=== PATIENT | female | born 1940 | race African-American/Black ===

== ENCOUNTER → 2017-06-06 | Outpatient (CLI) | payer OTHER ==
[~2017-06-06] MED LIST: AMLODIPINE BESYL5 MG PO; B/P MED; CARAFATE 1 GM TA1 G1 PO; CATAPRES0.1 MG PO; CEFDINIR300 MG PO; COZAAR100 MG PO; DEXILANT60 MG PO; ERYTHROMYCIN250 M1 PO; ERYTHROMYCIN250 MG PO; FLAGYL500 M1 PO; HYDROCODONE-AP1 EAC6 PO; HYZAAR 100-12.1 EACH PO; NAPROSYN500 MG PO; NORCO 5-325 TA1 EACH PO; ULORIC40 MG; Z PACK; ZOCOR 20 MG TAB20 M1 PO; ZOFRAN ODT4 MG PO; ZYRTEC10 MG PO
== END ==
LOC: NUC 09:10
DX: M81.0 Age-related osteoporosis without current pathological fracture (principal); E28.39 Other primary ovarian failure

== ENCOUNTER → 2017-07-01 | Outpatient (CLI) | payer OTHER | LOC: RAD 01:12 | DX: Z12.31 Encounter for screening mammogram for malignant neoplasm of breast (principal) ==

== ENCOUNTER → 2018-07-31 | Outpatient (CLI) | payer OTHER | LOC: RAD 13:12 | DX: Z12.31 Encounter for screening mammogram for malignant neoplasm of breast (principal) ==

== ENCOUNTER 2018-09-02 11:55 | Emergency (ER) | payer OTHER ==
[~2018-09-02] VITALS: Ht 170.2 cm; Wt 67.6 kg
[~2018-09-02 11:55] MED LIST changes: -AMLODIPINE BESYL5 MG PO; +NORVASC5 MG PO
[2018-09-02 12:44] LABS: ABSOLUTE NEUTROPHILS 3.6 thou/uL (1.4-8.2); BASOPHILS 0.9 % (0.0-2.0); EOSINOPHILS 1.7 % (0.0-3.0); HEMATOCRIT 37.7 % (37.0-47.0); HEMOGLOBIN 12.3 gm/dL (12.0-15.0); MCH 27.4 pg (26.0-34.0); MCHC 32.6 g/dL (28.0-37.0); MCV 84.2 fL (80.0-100.0); MONOCYTES 8.1 % (1.0-8.0); PLATELET COUNT 204 thou/uL (150-400); POLYS 55.3 % (36.0-66.0); RBC 4.48 mil/uL (4.20-5.00); RDW 17.3 % (10.5-14.5); WBC 6.4 thou/uL (4.0-11.0)
[2018-09-02 12:47] LABS: CALCIUM 9.9 mg/dL (8.5-10.1); POTASSIUM 3.5 mmol/L (3.5-5.1)
[2018-09-02 12:53] LABS: ALBUMIN 3.9 g/dL (3.4-5.0); DIRECT BILIRUBIN 0.2 mg/dL (<0.1-0.3); TOTAL BILIRUBIN 0.7 mg/dL (<0.1-1.0); TOTAL PROTEIN 8.3 g/dL (6.4-8.2)
[2018-09-02] MEDS ORDERED: ZYLOPRIM300 MG PO (13:12)
[2018-09-02] MEDS ORDERED: PRAVACHOL20 MG PO (13:13)
[2018-09-02] MEDS ORDERED: ERYTHROMYCIN250 M1 PO (13:13)
[2018-09-02] MEDS ORDERED: SINGULAIR 10 MG10 M1 PO (13:13)
[2018-09-02] MEDS ORDERED: OMEPRAZOLE40 MG PO (13:14)
[2018-09-02 13:19] VITALS: BP 136/60
[2018-09-02 14:21] LABS: URINE BILIRUBIN NEGATIVE (Negative); URINE BLOOD NEGATIVE (Negative); URINE CLARITY CLEAR; URINE COLOR YELLOW; URINE GLUCOSE-RANDOM* NEGATIVE (Negative); URINE KETONES NEGATIVE (Negative); URINE LEUKOCYTES-REFLEX NEGATIVE (Negative); URINE NITRITE-REFLEX NEGATIVE (Negative); URINE PROTEIN (DIPSTICK) NEGATIVE (Negative); URINE SPECIFIC GRAVITY <= 1.005 (1.005-1.035); URINE UROBILINOGEN 0.2 E.U./dl (0.2-1.0)
[2018-09-02] MEDS ORDERED: CARAFATE 1 GM TA1 G1 PO (14:47)
[2018-09-04] MEDS ORDERED: LOSARTAN-HCTZ1 EAC2 PO (14:25)
[2018-09-04] MEDS ORDERED: ADULT ONE DAI200 MCG PO (14:26)
== END 2018-09-02 15:48 | disposition home or self-care (01) ==
LOC: ER 11:55
PROVIDERS: Emergency Medicine
DX: K29.70 Gastritis, unspecified, without bleeding (principal); I10 Essential (primary) hypertension; E11.9 Type 2 diabetes mellitus without complications; E78.00 Pure hypercholesterolemia, unspecified; K21.9 Gastro-esophageal reflux disease without esophagitis; Z90.710 Acquired absence of both cervix and uterus; Z87.19 Personal history of other diseases of the digestive system; Z79.899 Other long term (current) drug therapy; Z88.5 Allergy status to narcotic agent

== ENCOUNTER → 2018-09-09 | Outpatient (CLI) | payer OTHER ==
[~2018-09-09] VITALS: Ht 170.2 cm; Wt 67.6 kg
[~2018-09-09] MED LIST changes: +ADULT ONE DAI200 MCG PO; +LOSARTAN-HCTZ1 EAC2 PO; +OMEPRAZOLE40 MG PO; +PRAVACHOL20 MG PO; +SINGULAIR 10 MG10 M1 PO; +ZYLOPRIM300 MG PO
--- NOTE | ~2018-09-09 | P ---
[facility] [place] [address] PROCEDURE REPORT Name: MOUSTAPHA BURRIS Room #: REG [facility]#: [id number] Admission: 09/09/18 ������������������ Attend Phys: Brian Vo Discharge: ������������������ Date of : 38 Report #: [id number] THIS REPORT FOR: //name// CC: Brian Brown DATE OF SERVICE: 09/09/2018 PROCEDURE PERFORMED: Colonoscopy. HISTORY OF PRESENT ILLNESS: The patient is a 77-year-old female, with history of colon polyps, here for routine 5-year followup. No family history of colon cancer. Denies any symptoms at this time. DESCRIPTION OF PROCEDURE: The risks and benefits of the procedure were explained to the patient, those risks including, but not limited to, bleeding, perforation, the risk of sedation. She understood these risks and gave informed consent. Sedation was given using propofol per anesthesia. Next, a digital rectal exam was initially performed, which was normal. Next, using a standard Olympus colonoscope, the scope was placed in the patient's anus and advanced under direct vision to the cecum. The overall prep was good. The cecum and ileocecal valve were normal in appearance. Ascending, transverse and descending colon were normal. A few scattered diverticula were noted in the sigmoid colon, no evidence of inflammation, otherwise normal. The rectal mucosa was normal. On retroflexion, small nonbleeding internal hemorrhoids were noted. The scope was then withdrawn and the procedure terminated. The patient tolerated the procedure well. IMPRESSION: 1. Sigmoid diverticulosis, mild. 2. Small internal hemorrhoids. 3. Otherwise, normal colonoscopy. RECOMMENDATIONS: 1. Recommend high fiber diet. 2. No need for repeat colonoscopy due to the patient's age. Thank you for allowing me to participate in her care. ��������������������������������������������� ���������������������������������������� By: ��������������������������������������������� 0953 20 Brian Su MD /nt
== END | disposition home or self-care (01) ==
LOC: GI 07:16
DX: Z12.11 Encounter for screening for malignant neoplasm of colon (principal); Z86.010 Personal history of colon polyps; K57.30 Diverticulosis of large intestine without perforation or abscess without bleeding; K64.8 Other hemorrhoids; I10 Essential (primary) hypertension; E78.00 Pure hypercholesterolemia, unspecified; K21.9 Gastro-esophageal reflux disease without esophagitis; E11.9 Type 2 diabetes mellitus without complications; Z90.49 Acquired absence of other specified parts of digestive tract; Z90.711 Acquired absence of uterus with remaining cervical stump; Z88.6 Allergy status to analgesic agent; Z79.899 Other long term (current) drug therapy; Z98.890 Other specified postprocedural states
CPT/HCPCS: 62110; 62900

== ENCOUNTER → 2019-09-07 | Outpatient (CLI) | payer OTHER | LOC: BC 09:46 | DX: Z12.31 Encounter for screening mammogram for malignant neoplasm of breast (principal) ==

== ENCOUNTER → 2020-03-07 | Outpatient (CLI) | payer OTHER | LOC: BC 10:10 | PROVIDERS: ATTEND Family Medicine | DX: N64.4 Mastodynia (principal); R92.8 Other abnormal and inconclusive findings on diagnostic imaging of breast ==

== ENCOUNTER → 2020-09-15 | Outpatient (CLI) | payer OTHER | LOC: BC 10:13 | PROVIDERS: ATTEND Family Medicine | DX: Z12.31 Encounter for screening mammogram for malignant neoplasm of breast (principal) ==

== ENCOUNTER → 2020-09-20 | Outpatient (CLI) | payer OTHER | LOC: BC 13:24 | PROVIDERS: ATTEND Family Medicine | DX: R92.0 Mammographic microcalcification found on diagnostic imaging of breast (principal) ==

== ENCOUNTER → 2020-09-28 | Outpatient (CLI) | payer OTHER ==
--- NOTE | 2020-10-02 15:07 | PATH ---
[facility] [place] [address] PATHOLOGY RPT PROCEDURE Name: MOUSTAPHA RAMIREZ Room #: REG [facility] M.R.#: [id number] Admission: 09/28/20 Date of : 38 Discharge: Report #: [id number] Path Case #: [id number] LCA Accession Number: [id number] . 01 Material submitted: . breast - STEREO LEFT MEDIAL BREAST CALCIFICATIONS. Modifiers: left, medial . 01 Clinical history: . US/BREAST BIOPSY STEREOTACTIC . 02 Diagnosis: Breast, left breast medial, stereotactic needle core biopsy: - DUCTAL CARCINOMA IN SITU, CRIBRIFORM TYPE, INTERMEDIATE NUCLEAR GRADE ASSOCIATED WITH COARSE CALCIFICATIONS. - Negative for invasive carcinoma. 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 02 Comment: Properly controlled immunohistochemical stains are performed on block A1 and include a p63, myosin and calponin. The immunohistochemical stains show intact myoepithelial cell layer surrounding the malignant cells, consistent with ductal carcinoma in situ. . ER and CA are ordered on block A1 and the results of these will be reported in an addendum to follow. . Dr. Alberto Leon has seen it sales representative slides of this case and concur with the diagnosis rendered. . Findings of this case are telephoned to miss Cruz in our breast center in the morning of 10/02/2020. . (IUV:rod puller and coiler; 10/02/2020) . 02 Electronically signed: . Libra Varela MD, Pathologist NPI- [id number] . 01 Gross description: . The specimen is received in formalin, labeled "Moustapha Ramirez left" additionally labeled left breast calcifications medial on the requisition received as multiple soft lisa-yellow tissue cores measuring up to 2.5 cm x 0.2 cm. The specimen is entirely submitted A1-A3 (tissue in the white cassette transferred to cassette A1). The specimen is removed from the patient at 1045 hours and placed in formalin at 1050 hours on September. [place] [address] PATHOLOGY RPT PROCEDURE Name: MOUSTAPHA RAMIREZ Room #: REG [facility]#: [id number] Admission: 09/28/20 Date of : 39 Discharge: Report #: [id number] Path Case #: [id number] from formalin at 11:30pm. The specimen is in formalin for greater than 6 hours and less than 72 hours. ([facility]; 09/28/2020) MONROE/MONROE 10/02/2020 1101 Local . 02 Pathologist provided ICD-10: D05.12 . 02 CPT . 585524, J00079, K31008 Specimen Comment: A courtesy copy of this report has been sent to [phone] Specimen Comment: [phone] Specimen Comment: Report sent to / DR VIRGEN Performed at: [address], [place] [id number] MD Alberto Leon MD Phone: [phone] Performed at: [address] [id number] MD Libra Varela MD Phone: [phone]
== END | disposition home or self-care (01) ==
LOC: ULTRA 09:32
PROVIDERS: ATTEND Family Medicine
DX: D05.12 Intraductal carcinoma in situ of left breast (principal); R92.1 Mammographic calcification found on diagnostic imaging of breast; I10 Essential (primary) hypertension; E78.00 Pure hypercholesterolemia, unspecified; K21.9 Gastro-esophageal reflux disease without esophagitis; Z98.890 Other specified postprocedural states; Z79.899 Other long term (current) drug therapy; Z90.49 Acquired absence of other specified parts of digestive tract; Z90.710 Acquired absence of both cervix and uterus; Z88.6 Allergy status to analgesic agent

== ENCOUNTER 2020-11-03 07:48 | Day surgery (SDC) | payer OTHER ==
[~2020-11-03] VITALS: Ht 167.6 cm; Wt 58.1 kg
--- NOTE | ~2020-11-03 | O ---
[facility] [place] [address] OPERATIVE REPORT Name: MOUSTAPHA BURRIS Room #: 150-4 [facility] MAdriel.#: [id number] Admission: 11/03/20 Attend Phys: Paulina Dugan DO Discharge: Date of : 39 Report #: [id number] THIS REPORT FOR: cc: Sharon Chaudhari MD, Lisa A. MD Fisher, Chelsea R. DO ~ DATE OF SERVICE: 11/03/2020 PREOPERATIVE DIAGNOSIS: Left breast ductal carcinoma in situ. POSTOPERATIVE DIAGNOSES: 1. Left breast ductal carcinoma in situ. 2. Left breast hematoma. SURGEON: Dr. Paulina Dugan. ANESTHESIA: General endotracheal and local anesthetic. PROCEDURE: Left breast lumpectomy with wire localization. SPECIMENS: 1. Left breast lumpectomy. 2. Additional medial margin. ESTIMATED BLOOD LOSS: 15 mL. COMPLICATIONS: None. INDICATIONS FOR PROCEDURE: The patient is an 79-year-old female who was seen in my office for evaluation of the left breast abnormality seen on mammogram. Core needle biopsy with evidence of DCIS and no invasive carcinoma. The patient had a large hematoma at the biopsy site seen in preoperative clinic. Therefore, after allowing time for hematoma resolution, the patient was scheduled for the operating room for a left breast lumpectomy with wire localization. The patient was explained the procedure, including risks, benefits and alternatives. All questions were answered to patient's satisfaction. Informed consent was obtained. DESCRIPTION OF PROCEDURE: The patient presented to the preoperative holding area. She underwent wire localization with radiology preoperatively. The patient was then seen by myself and the left breast was then marked. All questions were answered. The patient was then taken to the operating room and general anesthesia was induced. SCDs were placed on bilateral extremities and prophylactic antibiotics were administered. Next, the left breast and wire were then prepped and draped in the usual sterile fashion. After a timeout was performed, a 3 cm incision was made on an oblique angle in the left upper medial [address] [address] OPERATIVE REPORT Name: MOUSTAPHA BURRIS Room #: 150-4 [facility] M.R.#: [id number] Admission: 11/03/20 Attend Phys: Paulina Dugan DO Discharge: Date of : 39 Report #: [id number] breast and incorporated the needle stick site. Dissection was carried down through the needle and wire. There was noted to be a large left breast hematoma at the site of the patient's previous biopsy. Circumferential dissection was performed around this hematoma capsule and incorporated additional normal-appearing fatty breast tissue. During this dissection, the wire was pulled from the specimen and was placed on the back table. Continued dissection around the mass was performed ensuring hemostasis along the way. Once the specimen was removed in its entirety, it was approximately 2.5 x 2.5 cm in size and the specimen was then marked short stitch superior, long stitch lateral, and double stitch anterior. The specimen was then sent to radiology and a mammogram was performed. There were noted to be microcalcifications nearing the margin of one of the borders of the specimen; however, unable to clearly identify which border this was, presumed to be possibly the medial; therefore, the mass was reoriented on the specimen plate and was re-imaged. The second image did demonstrate this was in the medial likely superior aspect of the lumpectomy cavity. This medial aspect of the cavity was then grasped with an Allis clamp and using a scalpel, an additional margin was obtained and a stitch was placed on the new margin. This was sent for permanent specimen labeled left breast additional medial margin. At this time, the area was then copiously irrigated with sterile saline. Hemostasis was achieved using Bovie cautery. The wound was then closed in a layered fashion using 3-0 Vicryl in a deep breast plane to decrease the seroma formation as well as in the deep dermal layers, 4-0 Monocryl was run in a subcuticular fashion to close the skin and Dermabond was applied for sterile dressing. All sponge and instrument count was reported as correct at the end of the case. The patient was awakened from anesthesia in the operating room and taken to the PACU in stable condition for further recovery. By: 1108 1134 Paulina Dugan DO /nt
[~2020-11-03 07:48] MED LIST changes: +ANIMAL CHEWS1 EAC1 PO; +BENTYL 10 MG CA10 M1 PO
[2020-11-03 11:17] VITALS: BP 139/71
[2020-11-03] MEDS ORDERED: ONDANSETRON ODT4 MG PO (12:10)
[2020-11-03] MEDS ORDERED: TRAMADOL 50 MG50 MG PO (12:11)
[2020-11-03 12:26] VITALS: BP 139/71
--- NOTE | 2020-11-07 17:06 | PATH ---
[facility] [place] [address] PATHOLOGY RPT PROCEDURE Name: MOUSTAPHA BURRIS Room #: DEP [facility]..#: [id number] Admission: 11/03/20 Date of : 39 Discharge: 11/03/20 Report #: [id number] Path Case #: [id number] LCA Accession Number: [id number] . 01 Material submitted: . PART A: breast - LEFT BREAST LUMPECTOMY WIRE LOCALIZATION. Modifiers: left PART B: breast - ADDITIONAL MEDIAL MARGIN LEFT BREAST. Modifiers: left, medial . 01 Clinical history: . LUMPECTOMY SJ LEFT BREAST DCIS FOR A- LONG SUTURE/LATERAL MARGIN SHORT SUTURE/SUPERIOR MARGIN DOUBLE SUTURE/ANTERIOR MARGIN FOR B- STITCH NOBLE THE NEW MARGIN . 02 Diagnosis: A. Breast, left breast, lumpectomy: - DUCTAL CARCINOMA IN SITU, CRIBRIFORM AND SOLID TYPES, INTERMEDIATE NUCLEAR GRADE. - Negative for invasive carcinoma. - Biopsy site changes present associated with hemorrhage, and repair. - MARGINS OF RESECTION FOCALLY POSITIVE FOR DUCTAL CARCINOMA IN SITU (ASSOCIATED WITH CAUTERY); POSITIVE MARGINS INCLUDE ANTERIOR, TONY-INFERIOR AND LATERAL. - Superior, posterior and medial margins widely free of malignancy; closest superior margin is 0.7 cm away. . B. Breast, additional medial margin left breast, re-excision: - Benign breast tissue with proliferative fibrocystic changes. - Negative for atypia, carcinoma in-situ or malignancy. . 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 . . Surgical Pathology Cancer Case Summary . Protocol posting date: May 2019 . DCIS OF THE BREAST: . Specimen Identification . Procedure ___ Lumpectomy with wire localization . [facility] [address] [place] [address] PATHOLOGY RPT PROCEDURE Name: DAYTONMOUSTAPHADARNELL DUFFY Room #: DEP [facility]..#: [id number] Admission: 11/03/20 Date of : 39 Discharge: 11/03/20 Report #: [id number] Path Case #: [id number] Specimen Laterality ___ Left . Size (Extent) of DCIS Estimated size (extent) of DCIS (greatest dimension using gross and microscopic evaluation): at least 4 mm Number of blocks with DCIS: 7 Number of blocks examined: 13 . Histologic Type ___ Ductal carcinoma in situ . Architectural Patterns ___ Cribriform and Solid types . Nuclear Grade) ___ Grade II (Intermediate) . Necrosis ___ Not identified . Margins ___ Positive for DCIS ___Anterior Extent (specify): focal ___Antero- inferior Extent (specify): focal ___Lateral Extent (specify): focal . . . Regional Lymph Nodes . ___ No lymph nodes submitted or found . Pathologic Stage Classification (pTNM, AJCC 8th Edition) . Primary Tumor (pT) ___ pTis (DCIS): Ductal carcinoma in situ . 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 02 Comment: A. DCIS is identified in scattered foci at the anterior, tony-inferior and the lateral margins. These do not represent contigous foci. [facility] [address] [place] [address] PATHOLOGY RPT PROCEDURE Name: MOUSTAPHA BURRIS TATI Room #: DEP [facility]#: [id number] Admission: 11/03/20 Date of : 39 Discharge: 11/03/20 Report #: [id number] Path Case #: [id number] . Electrical Unit Rebuilder slides with the ductal carcinoma in situ identified at the margins associated with cautery (slides A3, A7, and A12) are co-reviewed by Dr. Becky Peter who concurs with my diagnosis. . Findings of this case are communicated to Dr. Paulina Dugan at 5:00 pm on 11/06/2020. . 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 02 Electronically signed: . Libra Varela MD, Pathologist NPI- [id number] . 01 Gross description: . A. Fixative: Formalin Specimen received: Left breast lumpectomy wire localization, double anterior, long lateral, short superior received Oriented: Short superior, long lateral, double anterior Weight: 10 g Dimensions: 3.1 cm medial to lateral, 2.8 cm superior to inferior, 2.2 cm anterior to posterior . The specimen is inked as follows: superior-red inferior-blue anterior-green posterior-black lateral-orange medial-yellow . Sectioned from: Medial to lateral Number of slices: 9 Previous biopsy site: 1.4 x 0.9 x 0.9 cm Previous biopsy site location: Slices 3 through 7 . Previous biopsy site to margins: 0.7 cm to superior 0.7 cm to inferior 0.2 cm to anterior 1.0 cm to posterior 1.3 cm to lateral 0.9 cm to medial . Biopsy clip: Not identified Uninvolved breast parenchyma: White, fibrous with a slight amount of bright yellow, lobulated tissue identified . [address] [address] PATHOLOGY RPT PROCEDURE Name: MOUSTAPHA BURRIS Room #: DEP [facility]#: [id number] Admission: 11/03/20 Date of : 39 Discharge: 11/03/20 Report #: [id number] Path Case #: [id number] The specimen is submitted as follows: . A1 slice 1 (most medial margin), serially sectioned A2 slice 2 A3 slice 3 A4-A5 slice 4, bisected into superior and inferior aspects A6-A7 slice 5, bisected into superior and inferior aspects (closest anterior margin) A8-A9 slice 6, bisected into superior and inferior aspects A10 slice 7 A11 slice 8 A12 slice 9 (most lateral margin), serially sectioned. . The specimen is removed from the patient at 1101 on 11/03/2020; the time in formalin is not provided. The specimen is removed from formalin at 1850 on 11/05/2020. The specimen is in formalin for greater than 6 hours and less than 72 hours. . B. Fixative: Formalin Labeled: Additional medial margin left breast, stitch noble new margin Specimen received: Partially oriented lumpectomy Weight: 1 g Oriented: A single suture designating the new medial margin Dimensions: 2.4 x 1.5 x 0.7 cm New margin inked: Black . Serially sectioned and entirely submitted in B1 and B2. . The specimen is removed from the patient at 1142 and placed into formalin at 1150 on 11/03/2020. The specimen is removed from formalin at 1850 on 11/05/2020. The total formalin fixation time is between 6 hours and 72 hours. (CAA; 11/04/2020) QAC/QAC 11/04/2020 1848 Local . 02 Pathologist provided ICD-10: D05.12, N60.12 . 02 CPT . 327718, 494244 Specimen Comment: A courtesy copy of this report has been sent to [phone] Specimen Comment: [phone] Specimen Comment: Report sent to / DR VIRGEN Performed at: 01 [facility] [address] [place] [address] [address], [place] [id number] MD Alberto Leon MD Phone: [phone] [address] [address] PATHOLOGY RPT PROCEDURE Name: MOUSTAPHA BURRIS Room #: B[facility] I[facility]#: [id number] Admission: 11/03/20 Date of : 39 Discharge: 11/03/20 Report #: [id number] Path Case #: [id number] Performed at: [address] [id number] MD Libra Varela MD Phone: [phone]
== END 2020-11-03 13:11 | disposition home or self-care (01) ==
LOC: OR 07:48 → TBA 07:48 → OR 10:06 → BC 14:58 → OR 15:04
PROVIDERS: ATTEND Surgery
DX: D05.12 Intraductal carcinoma in situ of left breast (principal); N60.12 Diffuse cystic mastopathy of left breast; N64.89 Other specified disorders of breast; R92.1 Mammographic calcification found on diagnostic imaging of breast; I10 Essential (primary) hypertension; E11.9 Type 2 diabetes mellitus without complications; E78.00 Pure hypercholesterolemia, unspecified; K21.9 Gastro-esophageal reflux disease without esophagitis; Z98.890 Other specified postprocedural states; Z79.899 Other long term (current) drug therapy; Z90.711 Acquired absence of uterus with remaining cervical stump; Z85.3 Personal history of malignant neoplasm of breast
CPT/HCPCS: 50010; 50101; 50386; 50403; 54118; 56524; 56526; 62110; 62900; 70005

== ENCOUNTER 2020-11-17 06:08 | Day surgery (SDC) | payer OTHER ==
[~2020-11-17] VITALS: Ht 170.2 cm; Wt 59.0 kg
--- NOTE | ~2020-11-17 | O ---
[facility] [place] [place] [address] OPERATIVE REPORT Name: MOUSTAPHA BURRIS Room #: 150-1 [facility] M.R.#: [id number] Admission: 11/17/20 Attend Phys: Paulina Dugan DO Discharge: Date of : 39 Report #: [id number] THIS REPORT FOR: cc: Sharon Chaudhari MD, Lisa A. MD Fisher, Chelsea R. DO ~ DATE OF SERVICE: 11/17/2020 PREOPERATIVE DIAGNOSIS: Left breast ductal carcinoma in situ with positive margins. POSTOPERATIVE DIAGNOSES: 1. Left breast ductal carcinoma in situ with positive margins. 2. Left breast hematoma. SURGEON: Paulina Dugan DO ANESTHESIA: General endotracheal and local anesthetic. PROCEDURE: Left breast reexcision of positive margins x3. SPECIMENS: 1. Anterior margin (stitch cote new margin). 2. Anterior inferior margin (stitch cote new margin). 3. Lateral margin (stitch cote new margin). ESTIMATED BLOOD LOSS: 10 mL. COMPLICATIONS: None. INDICATIONS FOR PROCEDURE: The patient is an 79-year-old female who presents today for reexcision of lumpectomy margins for positive DCIS. The patient was seen in the office 2 days ago and no changes in her current medical status. The patient was explained the procedure including risks, benefits and alternatives. All questions were answered to patient's satisfaction. Informed consent was obtained. DESCRIPTION OF PROCEDURE: After the patient was brought back to the operating room and placed in supine position, general anesthesia was induced. SCDs were placed on bilateral extremities and prophylactic antibiotics were administered. Next after the left chest and breast were prepped and draped in the usual sterile fashion, a timeout was performed. Local anesthetic with 0.5% Marcaine was injected into the previous scar. The Dermabond had been removed during the prep of the patient. Using a 15 blade scalpel, the previous incision site was incised and visible sutures were removed. At this time, immediate return of clear seroma and hematoma were evacuated from the breast approximately [address] [address] OPERATIVE REPORT Name: MOUSTAPHA BURRIS TATI Room #: 150-1 [facility] M.R.#: [id number] Admission: 11/17/20 Attend Phys: Paulina Dugan DO Discharge: Date of : 39 Report #: [id number] Next, the wound was inspected and margins of the wound were reviewed. At this time, an Allis clamp was used to grasp the anterior margin. Using a 15 blade scalpel, a shave biopsy was performed of the anterior margin. Once removed, a 3-0 silk suture was placed on the new margin and this was sent for specimen #1. At this time, the anterior inferior margin was then grasped and a shave biopsy was performed in a similar fashion using a 15 blade scalpel. The new margin was tagged with a silk suture and this was passed off as additional specimen. Finally, the lateral margin was grasped with an Allis clamp and a shave biopsy was performed and this was also tagged with a suture marking the new margin. The wound was copiously irrigated. Hemostasis was achieved using Bovie cautery as well as pressure. The wound again was irrigated and the wound was noted to be hemostatic. At this time, the deep dermal layer was reapproximated using a 3-0 Vicryl stitches. The skin was then closed with a 4-0 Monocryl in a subcuticular manner and Dermabond was applied for sterile dressing. All sponge and instrument count was reported as correct at the end of the case. The patient was awakened from anesthesia in the operating room and taken to the PACU in stable condition for further recovery. By: 0737 0800 Paulina Dugan DO /nt
[~2020-11-17 06:08] MED LIST changes: +ONDANSETRON ODT4 MG PO; +TRAMADOL 50 MG50 MG PO
[2020-11-17 07:12] LABS: CALCIUM 9.7 mg/dL (8.5-10.1); CREATININE 1.1 mg/dL (0.6-1.0); POTASSIUM 3.4 mmol/L (3.5-5.1)
[2020-11-17 08:51] VITALS: BP 126/61
--- NOTE | 2020-11-21 12:07 | PATH ---
[facility] [place] [address] PATHOLOGY RPT PROCEDURE Name: MOUSTAPHA RAMIREZ Room #: DEP [facility]..#: [id number] Admission: 11/17/20 Date of : 38 Discharge: 11/17/20 Report #: [id number] Path Case #: [id number] LCA Accession Number: [id number] . 01 Material submitted: . PART A: breast - LEFT BREAST LATERAL MARGIN. Modifiers: left PART B: breast - LEFT BREAST ANTERIOR MARGIN. Modifiers: left PART C: breast - LEFT BREAST ANTERIOR INFERIOR MARGIN. Modifiers: left, anterior . 01 Clinical history: . EXCISION BREAST MARGINS LEFT BREAST DCIS . 02 Diagnosis: A. Breast, left breast lateral margin, re-excision: - Previous biopsy site reparative changes identified. - Negative for atypical ductal hyperplasia or carcinoma in situ. - New margins free of malignancy. . B. Breast, left breast anterior margin, re-excision: - Previous biopsy site reparative changes identified. - Negative for atypical ductal hyperplasia or carcinoma in situ. - New margins free of malignancy. . C. Breast, left breast anterior inferior margin, re-excision: - Previous biopsy site reparative changes identified. - Negative for atypical ductal hyperplasia or carcinoma in situ. - New margins free of malignancy. LBQ 11/20/2020 1820 Local . 02 Comment: The most recent left breast lumpectomy ([phone]; please see separate report for details) showed ductal carcinoma in situ focally present at the anterior, tony-inferior and lateral margins. The current re-excision specimens show reparative changes, scattered rare proliferative fibrocystic changes along with mature adipose tissue. There is no evidence of atypical ductal hyperplasia, or carcinoma in situ present at the new margins. The new margins are therefore widely free of malignancy. (IUV/db; 11/20/2020) . 02 Electronically signed: . Libra Varela MD, Pathologist NPI- [id number] . 01 Gross description: . The specimen is received in formalin, labeled "Moustapha Ramirez and [address] [address] PATHOLOGY RPT PROCEDURE Name: MOUSTAPHA RAMIREZ Room #: DEP [facility]ie#: [id number] Admission: 11/17/20 Date of : 38 Discharge: 11/17/20 Report #: [id number] Path Case #: [id number] Left breast lateral margin". It consists of an oriented hoang-yellow, irregular soft tissue fragment measuring 2.3 x 1.7 x 0.8 cm. The specimen is oriented with a stitch (no designation provided). The stitched surface is inked orange and the opposite surface is inked black. Sectioning reveals hoang-yellow rubbery cut surfaces. The specimen is entirely submitted in A1-A2. . B. The specimen is received in formalin, labeled "Moustapha Ramirez L and 1. Left breast anterior margin". It consists of an oriented hoang-yellow, irregular soft tissue fragment measuring 2.7 x 2.5 x 0.9 cm. the specimen is oriented with a stitch (no designation provided). The stitched surface is inked green and the opposite surface is inked black. Sectioning reveals hoang-yellow rubbery cut surfaces. The specimen is entirely submitted in B1-B4. . . C. The specimen is received in formalin, labeled "Moustapha Ramirez L and 1. Left breast anterior inferior margin". It consists of an oriented hoang-yellow, irregular soft tissue fragment measuring 3.4 x 2.3 x 1.0 cm. The specimen is oriented with a stitch (no designation provided). The stitched surface is inked blue and the opposite surface is inked black. Sectioning reveals hoang-yellow rubbery cut surfaces. The specimen is entirely submitted in C1-C4. (MRF; 11/17/2020) MFE/MFE 11/17/2020 1507 Local . 02 Pathologist provided ICD-10: N63.20 . 02 CPT . 642294, 194037, 257850 Specimen Comment: A courtesy copy of this report has been sent to [phone] Specimen Comment: Report sent to Specimen Comment: A duplicate report has been generated due to demographic updates. Performed at: 01 [facility] [address] [place] [address], [place] [id number] MD Alberto Leon MD Phone: [phone] Performed at: [address] [id number] MD Libra Varela MD Phone: [phone]
== END 2020-11-17 09:30 | disposition home or self-care (01) ==
LOC: TBA 06:08 → OR 06:08 → TBA 06:09 → OR 09:00
PROVIDERS: Anesthesiology; ATTEND Surgery
DX: D05.12 Intraductal carcinoma in situ of left breast (principal); I10 Essential (primary) hypertension; E78.00 Pure hypercholesterolemia, unspecified; K21.9 Gastro-esophageal reflux disease without esophagitis; Z98.890 Other specified postprocedural states; Z79.899 Other long term (current) drug therapy; Z88.6 Allergy status to analgesic agent; Z90.49 Acquired absence of other specified parts of digestive tract; Z90.711 Acquired absence of uterus with remaining cervical stump
CPT/HCPCS: 50010; 50101; 50386; 50403; 56524; 56526; 58585; 62110; 62900; 70005